=== PATIENT | male | born 1970 | race African-American/Black ===

== ENCOUNTER → 2018-07-02 | Outpatient (CLI) | payer OTHER ==
[~2018-07-02] MED LIST: AUGMENTIN 875-1 EACH PO; BENADRYL25 MG PO; CLARITIN10 M2 PO; CLEOCIN HCL150 MG PO; FLONASE 0.05%50 MCG NS; IBUPROFEN 800800 MG PO; LISINOPRIL20 MG PO; LISINOPRIL5 MG PO
== END ==
LOC: CAT 13:58
DX: Z13.6 Encounter for screening for cardiovascular disorders (principal); E78.00 Pure hypercholesterolemia, unspecified; Z82.49 Family history of ischemic heart disease and other diseases of the circulatory system

== ENCOUNTER 2018-09-16 10:02 | Emergency (ER) | payer BC, OTHER ==
[~2018-09-16] VITALS: Ht 175.3 cm; Wt 113.4 kg
[2018-09-16] MEDS ORDERED: AMOX TR-K CLV1 EAC4 PO (10:12)
[2018-09-16 10:23] LABS: ABSOLUTE NEUTROPHILS 2.1 thou/uL (1.4-8.2); BASOPHILS 1.4 % (0.0-2.0); EOSINOPHILS 1.7 % (0.0-3.0); HEMATOCRIT 47.4 % (42.0-52.0); HEMOGLOBIN 15.2 gm/dL (14.0-18.0); LYMPHOCYTES 45.4 % (24.0-44.0); MCH 24.2 pg (26.0-34.0); MCHC 32.1 g/dL (28.0-37.0); MCV 75.4 fL (80.0-100.0); MONOCYTES 9.5 % (1.0-8.0); PLATELET COUNT 216 thou/uL (150-400); RBC 6.28 mil/uL (4.50-6.00); RDW 16.1 % (10.5-14.5)
[2018-09-16 10:30] LABS: CALCIUM 9.3 mg/dL (8.5-10.1); CREATININE 1.4 mg/dL (0.7-1.3)
[2018-09-16 10:36] LABS: ALBUMIN 4.2 g/dL (3.4-5.0); TOTAL BILIRUBIN 2.6 mg/dL (<0.1-1.0); TOTAL PROTEIN 8.3 g/dL (6.4-8.2)
--- NOTE | 2018-09-16 10:36 | EKG ---
[facility] [place] [employer] [place] [address] ELECTROCARDIOGRAM REPORT Name: PEDRO PABLO AU Room #: [facility]#: [id number] ������������������ Admission: ������������������ Attend Phys: Discharge: ������������������ Date of : 74 Report #: [id number] ����������������������������������������������������������������� [id number] THIS REPORT FOR: //name// [facility] ED Test Date: 2018-09-16 Test Time: 10:21:02 Pat Name: VIVEKVIKAS AU Department: Room: Gender: [employer]: santos : 1970 Requested By: Shell Rainey Order Number: [id number] MD: Gilberto Tilley Measurements Intervals [place] Rate: 85 P: 60 DE: 146 QRS: 53 QRSD: 98 T: 18 QT: 371 QTc: 442 Interpretive Statements Sinus rhythm Probable left ventricular hypertrophy ST elev, probable normal early repol pattern Baseline wander in lead(s) V5 Compared to ECG 08/11/2013 11:57:05 No significant change was found Electronically Signed On 09-16-2018 10:36:32 CDT by Gilberto Tilley [email or web address] ��������������������������������������������� <ELECTRONICALLY SIGNED> ���������������������������������������� By: Gilberto Tilley MD, [facility] ��������������������������������������������� 09/16/18 1036 102 102 Gilberto Tilley MD, [facility] /EPI
[2018-09-16 11:04] LABS: URINE BILIRUBIN 2+ (Negative); URINE BLOOD TRACE (Negative); URINE CLARITY CLEAR; URINE COLOR ORANGE; URINE GLUCOSE-RANDOM* NEGATIVE (Negative); URINE KETONES 1+ (Negative); URINE LEUKOCYTES-REFLEX NEGATIVE (Negative); URINE NITRITE-REFLEX NEGATIVE (Negative); URINE PROTEIN (DIPSTICK) 2+ (Negative); URINE SPECIFIC GRAVITY 1.025 (1.005-1.035); URINE UROBILINOGEN 0.2 E.U./dl (0.2-1.0)
[2018-09-16 11:06] LABS: ICTOTEST (BILI CONFIRMATORY) Positive (Negative)
[2018-09-16 11:14] LABS: BACTERIA-REFLEX 1-9 Few /HPF (None Seen); CASTS None Seen /LPF (None Seen); CRYSTALS None Seen /LPF (None Seen); SQUAMOUS 0-3 Few /LPF (0-3); URINE RBC 3-10 Few /HPF (0-2); URINE WBC-REFLEX None Seen /HPF (0-5)
[2018-09-16] MEDS ORDERED: ZOFRAN ODT4 MG PO (12:51)
[2018-09-16] MEDS ORDERED: OXYCODONE HCL 55 MG PO (12:58)
[2018-09-16 13:02] VITALS: BP 137/84
== END 2018-09-16 13:13 | disposition home or self-care (01) ==
LOC: ER 10:02
PROVIDERS: Nurse Practitioner Family
DX: T36.0X5A Adverse effect of penicillins, initial encounter (principal); N17.9 Acute kidney failure, unspecified; K75.89 Other specified inflammatory liver diseases; I10 Essential (primary) hypertension; Z88.1 Allergy status to other antibiotic agents; Y92.89 Other specified places as the place of occurrence of the external cause

== ENCOUNTER → 2020-01-24 | Outpatient (CLI) | payer BC ==
[~2020-01-24] MED LIST changes: +AMOX TR-K CLV1 EAC4 PO; +OXYCODONE HCL 55 MG PO; +ZOFRAN ODT4 MG PO
== END ==
LOC: ULTRA 09:36
PROVIDERS: ATTEND Nurse Practitioner
DX: R79.89 Other specified abnormal findings of blood chemistry (principal); I10 Essential (primary) hypertension

== ENCOUNTER → 2020-05-22 | Outpatient (CLI) | payer BC | LOC: LAB 11:53 | PROVIDERS: ATTEND Nurse Practitioner | DX: R53.83 Other fatigue (principal); Z20.822 Contact with and (suspected) exposure to COVID-19 ==